=== PATIENT | female | born 1930 | race Caucasian/White ===

== ENCOUNTER 2018-01-05 22:02 | Inpatient (IN) | payer MEDICARE, BC ==
[~2018-01-05] VITALS: Ht 152.4 cm; Wt 57.6 kg
[2018-01-05 22:05] VITALS: BP 164/74
[2018-01-05] MEDS ORDERED: ADVAIR HFA 230M12 GM INH (22:16)
[2018-01-05] MEDS ORDERED: FOSAMAX 70 MG T70 MG PO (22:16)
[2018-01-05] MEDS ORDERED: TOPROL XL25 MG PO (22:16)
[2018-01-05] MEDS ORDERED: MIRALAX17 GM PO (22:16)
[2018-01-05] MEDS ORDERED: TYLENOL325 MG PO (22:17)
[2018-01-05] MEDS ORDERED: FLOMAX0.4 MG PO (22:17)
[2018-01-05] MEDS ORDERED: NORCO 10-325 T1 EACH PO (22:18)
[2018-01-05 22:38] LABS: ABSOLUTE BASOPHILS 0.1 thou/uL (0.0-0.2); ABSOLUTE EOSINOPHILS 0.2 thou/uL (0.0-0.7); ABSOLUTE LYMPHOCYTES 2.3 thou/uL (0.8-5.3); ABSOLUTE MONOCYTES 0.8 thou/uL (0.0-1.2); ABSOLUTE NEUTROPHILS 4.6 thou/uL (1.6-8.1); BASOPHILS 1.1 %; EOSINOPHILS 2.7 %; HEMOGLOBIN 13.3 gm/dL (12.0-15.0); LYMPHOCYTES 28.8 %; MCH 31.5 pg (26.0-34.0); MCHC 33.3 g/dL (28.0-37.0); MCV 94.5 fL (80.0-100.0); MONOCYTES 10.5 %; MPV 7.6 fl. (7.2-11.1); NUCLEATED RBCS 0 /100WBC; PLATELET COUNT* 317 thou/uL (150-400); POLYS 56.9 %; RBC 4.24 mil/uL (4.20-5.00); RDW-CV 13.3 % (10.5-14.5); WBC 8.1 thou/uL (4.0-11.0)
[2018-01-05 22:44] LABS: BE 0.7 mmol/L (-2 to +3); HCO3 24.9 mmol/L (22.0-26.0); PCO2 38.7 mmHg (35.0-45.0); PO2 76.9 mmHg (75.0-100.0); pH 7.427 (7.340-7.450)
[2018-01-05 23:00] LABS: CALCIUM 8.6 mg/dL (8.5-10.1); CREATININE 1.1 mg/dL (0.6-1.3); POTASSIUM 4.3 mmol/L (3.5-5.1)
[2018-01-05 23:04] LABS: ALBUMIN 3.2 g/dL (3.4-5.0); MAGNESIUM 1.9 mg/dL (1.8-2.4); TOTAL BILIRUBIN 0.2 mg/dL (<0.1-1.0); TOTAL PROTEIN 6.8 g/dL (6.4-8.2)
[2018-01-05 23:42] LABS: URINE BILIRUBIN NEGATIVE (Negative); URINE BLOOD 2+ (Negative); URINE CLARITY CLEAR; URINE COLOR YELLOW; URINE GLUCOSE-RANDOM NEGATIVE (Negative); URINE KETONES NEGATIVE (Negative); URINE LEUKOCYTES-REFLEX NEGATIVE (Negative); URINE NITRITE-REFLEX NEGATIVE (Negative); URINE PROTEIN NEGATIVE (Negative); URINE SPECIFIC GRAVITY 1.015 (1.005-1.030); URINE UROBILINOGEN 0.2 E.U./dl (0.2-1.0)
[2018-01-06 00:22] LABS: BACTERIA-REFLEX 1-9 Few /HPF (None Seen); CASTS None Seen /LPF (None Seen); CRYSTALS None Seen /LPF (None Seen); SQUAMOUS 4-10 Moderate /LPF (0-3); URINE RBC 0-2 Rare /HPF (0-2); URINE WBC-REFLEX 0-5 Rare /HPF (0-5)
[2018-01-06 01:32] VITALS: BP 135/49
[2018-01-06 07:27] VITALS: BP 144/68
[2018-01-06 07:55] VITALS: BP 121/56
[2018-01-06 11:57] VITALS: BP 137/42
[2018-01-06 21:41] VITALS: BP 142/52
[2018-01-07 04:00] VITALS: BP 114/48
[2018-01-07 04:57] LABS: HEMOGLOBIN 12.7 gm/dL (12.0-15.0); MCH 31.3 pg (26.0-34.0); MCHC 32.5 g/dL (28.0-37.0); MCV 96.2 fL (80.0-100.0); MPV 8.1 fl. (7.2-11.1); RBC 4.05 mil/uL (4.20-5.00); RDW-CV 13.2 % (10.5-14.5)
[2018-01-07 05:36] LABS: ALBUMIN 2.7 g/dL (3.4-5.0); ALKALINE PHOSPHATASE 65 U/L (46-116); ANION GAP 10 mmol/L (7-16); BUN 22 mg/dL (7-18); CALCIUM 8.3 mg/dL (8.5-10.1); CHLORIDE 108 mmol/L (98-107); CO2 23 mmol/L (21-32); GLUCOSE 78 mg/dL (70-99); MAGNESIUM 1.9 mg/dL (1.8-2.4); SGOT 21 U/L (15-37); SGPT 5 U/L (30-65); SODIUM 141 mmol/L (136-145); TOTAL BILIRUBIN 0.5 mg/dL (<0.1-1.0); TOTAL PROTEIN 5.7 g/dL (6.4-8.2); TROPONIN-I LEVEL <0.06 ng/mL (<0.06)
[2018-01-07 05:40] LABS: POTASSIUM 5.1 mmol/L (3.5-5.1)
[2018-01-07 09:00] VITALS: BP 147/64
[2018-01-07 16:00] VITALS: BP 147/78
[2018-01-07 20:46] VITALS: BP 135/46
[2018-01-08] VITALS: BP 124/53
[2018-01-08 08:04] VITALS: BP 137/62
[2018-01-08 10:47] VITALS: BP 137/62
[2018-01-08 12:03] VITALS: BP 143/86
[2018-01-08] MEDS ORDERED: LEVAQUIN 500 M500 M2 PO ×2 (13:13→14:17)
== END 2018-01-08 15:15 | disposition home health service (06) | DRG 91 ==
LOC: M.ERS 22:02 → M.TBA-ER 23:22 → M.2W 23:22 → M.TBA-ER 01-06 00:17 → M.2W 01-06 07:36
PROVIDERS: Personal Emergency Response Attendant; ADMIT Family Medicine
DX: G92 Toxic encephalopathy (principal); E43 Unspecified severe protein-calorie malnutrition; N39.0 Urinary tract infection, site not specified; S70.02XA Contusion of left hip, initial encounter; M81.0 Age-related osteoporosis without current pathological fracture; M19.90 Unspecified osteoarthritis, unspecified site; W06.XXXA Fall from bed, initial encounter; F03.90 Unspecified dementia, unspecified severity, without behavioral disturbance, psychotic disturbance, mood disturbance, and anxiety; Z88.0 Allergy status to penicillin; Z79.899 Other long term (current) drug therapy; Z86.718 Personal history of other venous thrombosis and embolism; Y93.89 Activity, other specified; Y92.89 Other specified places as the place of occurrence of the external cause; Y99.8 Other external cause status; Z68.24 Body mass index [BMI] 24.0-24.9, adult

== ENCOUNTER 2018-08-12 00:37 | Emergency (ER) | payer MEDICARE ==
[~2018-08-12] VITALS: Ht 160 cm; Wt 59.0 kg
[~2018-08-12 00:37] MED LIST: ADVAIR HFA 230M12 GM INH; FLOMAX0.4 MG PO; FOSAMAX 70 MG T70 MG PO; LEVAQUIN 500 M500 M2 PO; MIRALAX17 GM PO; NORCO 10-325 T1 EACH PO; TOPROL XL25 MG PO; TYLENOL325 MG PO
[2018-08-12 01:01] LABS: ABSOLUTE BASOPHILS 0.1 thou/uL (0.0-0.2); ABSOLUTE EOSINOPHILS 0.2 thou/uL (0.0-0.7); ABSOLUTE LYMPHOCYTES 2.4 thou/uL (0.8-5.3); ABSOLUTE MONOCYTES 0.7 thou/uL (0.0-1.2); ABSOLUTE NEUTROPHILS 3.8 thou/uL (1.6-8.1); BASOPHILS 1.3 %; EOSINOPHILS 3.2 %; HEMATOCRIT 39.1 % (37.0-47.0); HEMOGLOBIN 12.9 gm/dL (12.0-15.0); LYMPHOCYTES 33.3 %; MCH 30.9 pg (26.0-34.0); MCHC 32.9 g/dL (28.0-37.0); MCV 93.9 fL (80.0-100.0); MONOCYTES 9.7 %; MPV 7.8 fl. (7.2-11.1); NUCLEATED RBCS 0 /100WBC; PLATELET COUNT* 264 thou/uL (150-400); POLYS 52.5 %; RBC 4.17 mil/uL (4.20-5.00); RDW-CV 13.9 % (10.5-14.5); WBC 7.2 thou/uL (4.0-11.0)
[2018-08-12] MEDS ORDERED: VOLTAREN GEL 1100 G2 (01:20)
[2018-08-12] MEDS ORDERED: LIDOCAINE 2%2 %/5 GM (01:20)
[2018-08-12 01:39] LABS: ALBUMIN 3.2 g/dL (3.4-5.0); CALCIUM 9.2 mg/dL (8.5-10.1); TOTAL BILIRUBIN 0.3 mg/dL (<0.1-1.0); TOTAL PROTEIN 6.4 g/dL (6.4-8.2)
[2018-08-12 02:22] LABS: URINE BILIRUBIN NEGATIVE (Negative); URINE BLOOD NEGATIVE (Negative); URINE CLARITY CLEAR; URINE COLOR YELLOW; URINE GLUCOSE-RANDOM NEGATIVE (Negative); URINE KETONES NEGATIVE (Negative); URINE LEUKOCYTES-REFLEX NEGATIVE (Negative); URINE NITRITE-REFLEX NEGATIVE (Negative); URINE PROTEIN NEGATIVE (Negative); URINE UROBILINOGEN 0.2 E.U./dl (0.2-1.0)
[2018-08-12 03:40] VITALS: BP 154/73
--- NOTE | 2018-08-12 10:33 | EKG ---
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 : 1930 Requested By: Jayshree Davies Order Number: [id number] MD: Regino Kenney Measurements Intervals [place] Rate: 51 P: 75 [place]: 184 QRS: -28 QRSD: 124 T: 120 QT: 425 QTc: 392 Interpretive Statements Sinus bradycardia Left bundle branch block Baseline wander in lead(s) V1 No previous ECG available for comparison Electronically Signed On 08-12-2018 10:33:18 CDT by Regino Kenney [email or web address] <ELECTRONICALLY SIGNED> By: Regino Kenney MD, [facility] 08/12/18 1033 [id number] [id number] Regino Kenney MD, FACC /EPI
== END 2018-08-12 03:40 | disposition home or self-care (01) ==
LOC: M.ERS 00:37
PROVIDERS: Emergency Medicine
DX: S51.012A Laceration without foreign body of left elbow, initial encounter (principal); I10 Essential (primary) hypertension; M81.0 Age-related osteoporosis without current pathological fracture; F03.90 Unspecified dementia, unspecified severity, without behavioral disturbance, psychotic disturbance, mood disturbance, and anxiety; M19.90 Unspecified osteoarthritis, unspecified site; Z86.2 Personal history of diseases of the blood and blood-forming organs and certain disorders involving the immune mechanism; Z86.718 Personal history of other venous thrombosis and embolism; Z88.0 Allergy status to penicillin; W18.39XA Other fall on same level, initial encounter; Y93.89 Activity, other specified; Y92.89 Other specified places as the place of occurrence of the external cause; Y99.8 Other external cause status

== ENCOUNTER 2019-01-14 02:34 | Emergency (ER) | payer MEDICARE, BC ==
[~2019-01-14] VITALS: Ht 152.4 cm; Wt 57.9 kg
[~2019-01-14 02:34] MED LIST changes: +LIDOCAINE 2%2 %/5 GM; +VOLTAREN GEL 1100 G2
[2019-01-14] MEDS ORDERED: ASPIR 8181 MG PO (02:44)
[2019-01-14 03:08] LABS: ABSOLUTE BASOPHILS 0.1 thou/uL (0.0-0.2); ABSOLUTE EOSINOPHILS 0.1 thou/uL (0.0-0.7); ABSOLUTE LYMPHOCYTES 1.4 thou/uL (0.8-5.3); ABSOLUTE MONOCYTES 0.8 thou/uL (0.0-1.2); ABSOLUTE NEUTROPHILS 6.3 thou/uL (1.6-8.1); BASOPHILS 0.8 %; EOSINOPHILS 0.9 %; HEMATOCRIT 36.5 % (37.0-47.0); MCH 30.3 pg (26.0-34.0); MCHC 32.8 g/dL (28.0-37.0); MCV 92.2 fL (80.0-100.0); MONOCYTES 9.3 %; MPV 7.9 fl. (7.2-11.1); NUCLEATED RBCS 0 /100WBC; PLATELET COUNT* 337 thou/uL (150-400); RBC 3.96 mil/uL (4.20-5.00); RDW-CV 13.6 % (10.5-14.5); WBC 8.6 thou/uL (4.0-11.0)
[2019-01-14 03:17] LABS: INR 1.1; PROTIME 11.2 Seconds (9.20-11.50)
[2019-01-14 03:19] LABS: CALCIUM 8.5 mg/dL (8.5-10.1); POTASSIUM 3.8 mmol/L (3.5-5.1)
[2019-01-14 03:24] LABS: TOTAL BILIRUBIN 0.5 mg/dL (<0.1-1.0); TOTAL PROTEIN 6.4 g/dL (6.4-8.2)
[2019-01-14 05:29] VITALS: BP 124/47
--- NOTE | 2019-01-14 11:09 | EKG ---
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
== END 2019-01-14 05:29 | disposition short-term general hospital (02) ==
LOC: M.ERS 02:34
PROVIDERS: Family Medicine
DX: S06.6X0A Traumatic subarachnoid hemorrhage without loss of consciousness, initial encounter (principal); S02.2XXA Fracture of nasal bones, initial encounter for closed fracture; S12.120A Other displaced dens fracture, initial encounter for closed fracture; I10 Essential (primary) hypertension; M19.90 Unspecified osteoarthritis, unspecified site; Z86.2 Personal history of diseases of the blood and blood-forming organs and certain disorders involving the immune mechanism; Z86.718 Personal history of other venous thrombosis and embolism; Z88.0 Allergy status to penicillin; W18.39XA Other fall on same level, initial encounter; Y93.89 Activity, other specified; Y92.89 Other specified places as the place of occurrence of the external cause; Y99.8 Other external cause status